=== PATIENT | male | born 1950 | race Caucasian/White ===

== ENCOUNTER → 2018-08-23 | Outpatient (CLI) | payer MEDICARE, OTHER ==
--- NOTE | 2018-08-23 09:12 | Diagnostic Imaging Report ---
PROCEDURE:LIMITED ABDOMINAL ULTRASOUND COMPARISON:None. INDICATIONS:ASCITES FINDINGS: The patient was scanned by both the technologist and radiologist. Four-quadrant abdominal ultrasound was performed showing no significant ascites. Procedure was aborted. CONCLUSION: Terminated paracentesis due to lack of significant ascites. Dictated by: SINA FREEMAN M.D. on 08/23/2018 at 9:20 Electronically approved by: SINA FREEMAN M.D. on 08/23/2018 at 9:20
== END ==
LOC: US 08:21
PROVIDERS: ATTEND Internal Medicine
DX: C22.0 Liver cell carcinoma (principal); K70.31 Alcoholic cirrhosis of liver with ascites
CPT/HCPCS: 76705